=== PATIENT | male | born 1965 | race Caucasian/White ===

== ENCOUNTER → 2021-01-18 15:16 | Outpatient (CLI) | payer BC, SELFPAY ==
--- NOTE | ~2021-01-18 | MR_ITS ---
EXAMINATION: MR shoulder LT wo con DATE: 01/18/2021 16:02 INDICATION: Acute onset left shoulder pain TECHNIQUE: Magnetic resonance imaging (MRI) of the left shoulder was performed without intravenous co ntrast. Sequences included axial PD-weighted FS FSE, coronal oblique PD-weighted FS FSE, coronal obli que T2-weighted FS FSE, sagittal PD-weighted FS FSE, and sagittal T1-weighted SE. COMPARISON: None. FINDINGS: Coracoacromial arch: The acromion undersurface is curved in morphology (type II). Normal variant unfused meso acromial os acromiale. There are marginal osteophytes more prominent along the cephalad side of the synchondrosis . The coracoacromial ligament is normal. Mild acromioclavicular osteoarthritis. Rotator cuff: Mild tendinopathy of the conjoined portion of the supraspinatus and infraspinatus tendons without dis crete tear. More anterior and posterior portion of the tendons are normal as is the teres minor tendo n. Mild subscapularis tendinopathy with very small partial-thickness intrasubstance split tear at the central aspect of the lesser tuberosity footplate. Normal rotator cuff muscle bulk and signal. Biceps tendon, glenoid labrum and glenohumeral cartilage: Long head of the biceps tendon is normal. There is a linear high signal intensity tear at the 3-4:00 position of the anterior glenoid labrum with small multilobulated ganglion cyst extending 2 cm medial ly from the tear along the anterior neck of the glenoid and measuring up to 15 x 5 mm in maximal orth ogonal dimensions. More irregular degenerative tearing with amorphous increased extending along the a nteroinferior glenoid to the 6:00 position. Glenohumeral cartilage is normal. Fluid: Physiologic amount of fluid in the glenohumeral joint and biceps tendon sheath. No loose osteochondra l bodies. Mild increased fluid signal along the subacromial/subdeltoid bursa consistent with minimal bursitis. Bones: Normal marrow signal with no edema, fracture or abnormal marrow replacing process. IMPRESSION: 1. Tear at the anterior to inferior glenoid labrum with small anterior paralabral cyst. 2. Mild subscapularis tendinopathy with very small intrasubstance split tear at the central aspect of the lesser tuberosity footplate. 3. Mild tendinopathy of the conjoined supraspinatus and infraspinatus tendons without discrete tear. 4. Mild acromioclavicular arthritis, normal variant unfused meso acromial os acromiale and minimal un derlying subacromial/subdeltoid bursitis. Reviewed, dictated and finalized at location A. IMPRESSION: 1. Tear at the anterior to inferior glenoid labrum with small anterior paralabr al cyst. 2. Mild subscapularis tendinopathy with very small intrasubstance split tear at the central aspect of the lesser tuberosity footplate. 3. Mild tendinopathy of the conjoined supraspinatus and infraspinatus tendons w ithout discrete tear. 4. Mild acromioclavicular arthritis, normal variant unfused meso acromial os ac romiale and minimal underlying subacromial/subdeltoid bursitis.
== END ==
PROVIDERS: Visit Provider Orthopaedic Surgery
DX: M19.012 Primary osteoarthritis, left shoulder (principal); S43.492A Other sprain of left shoulder joint, initial encounter; X58.XXXA Exposure to other specified factors, initial encounter
CPT/HCPCS: 73221